=== PATIENT | female | born 1985 | race Caucasian/White ===

== ENCOUNTER 2016-12-28 20:32 | Inpatient (IN) ==
[2016-12-28] MEDS ORDERED: BRETHINE SUBQ PRN (20:35)
[2016-12-28] MEDS ORDERED: AMBIEN PO PRN (20:35)
[2016-12-28] MEDS ORDERED: REGLAN PO ONE (20:35)
[2016-12-28] MEDS ORDERED: KEFZOL 1 GM/D5W 1 GM/50 ML IVPB IV PRN (20:35)
[2016-12-28] MEDS ORDERED: TYLENOL PO PRN (20:35)
[2016-12-28] MEDS ORDERED: AMPICILLIN 2 GM/NS 2 GM/100 ML IVPB IV ONE ×2 (20:35→23:00)
[2016-12-28] MEDS ORDERED: STADOL IV PRN ×3 (20:35)
[2016-12-28] MEDS ORDERED: ZOFRAN IV PRN (20:35)
[2016-12-28] MEDS ORDERED: PEPCID IV PRN (20:35)
[2016-12-28] MEDS ORDERED: PEPCID PO ONE (20:35)
[2016-12-28] MEDS ORDERED: PITOCIN 30 UNITS/LR 30 UNITS/500 ML IV.SOLN IV SCH (20:35)
[2016-12-28] MEDS ORDERED: LR 500 ML IV ONE (20:35)
[2016-12-28] MEDS ORDERED: PEPCID PO PRN (20:35)
[2016-12-28] MEDS ORDERED: CYTOTEC PO ONE (20:35)
[2016-12-28] MEDS: LR 1,000 ML IV ONE (22:55)
[2016-12-28 23:29] LABS: MANUAL DIFF NEEDED? NO
[2016-12-28 23:32] LABS: BASO% 0.1 % (0.0-0.8); EOS# 0.15 X1000 (0.0-0.7); EOS% 1.2 % (0.0-10.0); HEMATOCRIT 39.1 % (37.0-47.0); HEMOGLOBIN 13.6 g/dL (12.0-16.0); IMM GRAN# 0.04 X1000 (0.0-0.04); IMM GRAN% 0.3 % (0.0-0.5); LYMPH# 2.62 X1000 (1.2-3.4); LYMPH% 21.8 % (20.5-51.1); MCH 28.5 PG (27-31); MCHC 34.8 g/dL (33-37); MONO# 0.95 X1000 (0.11-0.59); MONO% 7.9 % (1.7-9.3); MPV 9.9 FL (7.4-10.4); NEUT% 68.7 % (42.2-75.2); PLT 271 X1000 (130-400); RBC 4.77 XMIL (4.2-5.4)
[2016-12-29] MEDS: AMPICILLIN 1 GM/NS 1 GM/50 ML IVPB IV SCH ×4 (03:32→15:11)
[2016-12-29] MEDS: CYTOTEC PO SCH ×2 (03:35→06:06)
[2016-12-29 04:48] LABS: URINE SOURCE VOIDED
[2016-12-29 04:51] LABS: UR AMPHETAMINES QUAL NONE DETECTED (NONE DETECT); UR BARBITUATES QUAL NONE DETECTED (NONE DETECT); UR BENZODIAZEPIN QUAL NONE DETECTED (NONE DETECT); UR CANNABINOIDS QUAL NONE DETECTED (NONE DETECT); UR COCAINE QUAL NONE DETECTED (NONE DETECT); UR MDMA QUAL NONE DETECTED (NONE DETECT); UR METHADONE QUAL NONE DETECTED (NONE DETECT); UR METHAMPHETAMINE QUAL NONE DETECTED (NONE DETECT); UR OPIATES QUAL NONE DETECTED (NONE DETECT); UR OXYCODONE QUAL NONE DETECTED (NONE DETECT); UR PCP QUAL NONE DETECTED (NONE DETECT); UR TCA QUAL NONE DETECTED (NONE DETECT)
[2016-12-29 05:04] LABS: BILIRUBIN URINE NEGATIVE (NEGATIVE); BLOOD URINE NEGATIVE (NEGATIVE); CLARITY CLEAR (CLEAR); COLOR YELLOW; GLUCOSE URINE NEGATIVE (NEGATIVE); LEUKOCYTES URINE 2+ (NEGATIVE); NITRITE URINE NEGATIVE (NEGATIVE); PH URINE 6.5; PROTEIN URINE NEGATIVE (NEGATIVE); SP GRAVITY URINE 1.015; UROBILINOGEN URINE NORMAL
[2016-12-29] MEDS ORDERED: XYLOCAINE-MPF 1% INJ ONE (07:13)
[2016-12-29] MEDS ORDERED: MINERAL OIL ONE (07:13)
[2016-12-29] MEDS ORDERED: NAROPIN 0.2% EPIDURAL PRN (07:25)
[2016-12-29] MEDS: LR 1,000 ML IV ONE (09:03)
[2016-12-29] MEDS ORDERED: NAROPIN 0.2% ONE (10:17)
[2016-12-29] MEDS ORDERED: PITOCIN 20 UNITS/LR 20 UNITS/1,000 ML IV.SOLN IV SCH (17:25)
[2016-12-29] MEDS ORDERED: BENADRYL PO PRN (17:25)
[2016-12-29] MEDS ORDERED: NORCO-10 PO PRN (17:25)
[2016-12-29] MEDS ORDERED: CYTOTEC PO PRN (17:25)
[2016-12-29] MEDS ORDERED: XYLOCAINE-MPF 1% INJ PRN (17:25)
[2016-12-29] MEDS ORDERED: BOOSTRIX VACCINE IM ONE (17:25)
[2016-12-29] MEDS ORDERED: M-M-R II VACCINE SUBQ ONE (17:25)
[2016-12-29] MEDS ORDERED: HYDROXYZINE PO PRN (17:25)
[2016-12-29] MEDS ORDERED: NORCO-5 PO PRN (17:25)
[2016-12-29] MEDS ORDERED: BENADRYL IV PRN (17:25)
[2016-12-29] MEDS ORDERED: HYDROXYZINE IM PRN (17:25)
[2016-12-29] MEDS ORDERED: MINERAL OIL PO PRN (17:25)
[2016-12-29] MEDS ORDERED: AMBIEN PO PRN (17:25)
[2016-12-29] MEDS ORDERED: PITOCIN 30 UNITS/LR 30 UNITS/500 ML IV.SOLN IV ONE (17:25)
[2016-12-29] MEDS ORDERED: PITOCIN IM PRN (17:25)
[2016-12-29] MEDS: MOTRIN PO PRN (19:02)
[2016-12-29] MEDS: PERI MEDS (DERMOPLAST/NUPERCAINAL/TUCKS) MISC PRN (19:02)
[2016-12-29] MEDS: PERICOLACE PO SCH (22:12)
[2016-12-30] MEDS: MOTRIN PO PRN (03:35)
[2016-12-30 06:22] LABS: MANUAL DIFF NEEDED? NO
[2016-12-30 07:20] LABS: BASO% 0.1 % (0.0-0.8); EOS# 0.12 X1000 (0.0-0.7); HEMATOCRIT 32.3 % (37.0-47.0); HEMOGLOBIN 10.7 g/dL (12.0-16.0); IMM GRAN# 0.03 X1000 (0.0-0.04); IMM GRAN% 0.3 % (0.0-0.5); LYMPH# 3.02 X1000 (1.2-3.4); LYMPH% 25.3 % (20.5-51.1); MCH 27.9 PG (27-31); MCHC 33.1 g/dL (33-37); MCV 84.3 FL (81-99); MONO# 1.19 X1000 (0.11-0.59); NEUT% 63.3 % (42.2-75.2); PLT 225 X1000 (130-400); RBC 3.83 XMIL (4.2-5.4)
[2016-12-30] MEDS ORDERED: PRECARE PO SCH (09:00)
[2016-12-30] MEDS: PERI MEDS (DERMOPLAST/NUPERCAINAL/TUCKS) MISC PRN (11:50)
[2016-12-30] MEDS: PERICOLACE PO SCH (20:46)
[2016-12-31 08:15] VITALS: BP 119/66
== END 2016-12-31 11:35 | disposition home or self-care (01) ==
LOC: P.LD 20:32
PROVIDERS: ADMIT Obstetrics & Gynecology; ATTEND Obstetrics & Gynecology